=== PATIENT | female | born 1995 | race Caucasian/White ===

== ENCOUNTER 2018-11-30 19:34 | Inpatient (IN) | payer BC, OTHER, MEDICAID ==
[~2018-11-30] VITALS: Ht 152.4 cm; Wt 57.6 kg
[~2018-11-30 19:34] MED LIST: AMOXICILLIN 50500 MG PO; FLONASE 0.05%50 MCG NASAL; LIDOCAINE VISC100 ML PO; NORCO 5-325 TA1 EACH PO; PROAIR HFA8.5 GM INH; PROMETHAZINE/C118 ML PO
[2018-11-30 19:44] VITALS: BP 125/70
[2018-11-30 20:15] LABS: URINE BILIRUBIN NEGATIVE (Negative); URINE BLOOD NEGATIVE (Negative); URINE CLARITY CLEAR; URINE COLOR YELLOW; URINE GLUCOSE-RANDOM NEGATIVE (Negative); URINE KETONES NEGATIVE (Negative); URINE LEUKOCYTES 1+ (Negative); URINE NITRITE NEGATIVE (Negative); URINE PROTEIN NEGATIVE (Negative); URINE SPECIFIC GRAVITY >= 1.030 (1.005-1.030); URINE UROBILINOGEN 0.2 E.U./dl (0.2-1.0)
[2018-11-30 20:22] LABS: AMP/METHAMP POSITIVE (Negative); BARBITURATES Negative (Negative); BENZODIAZEPINES Negative (Negative); COCAINE Negative (Negative); METHADONE Negative (Negative); OPIATES Negative (Negative); PCP Negative (Negative); THC Negative (Negative)
[2018-11-30 20:26] LABS: ABSOLUTE BASOPHILS 0.1 thou/uL (0.0-0.2); ABSOLUTE EOSINOPHILS 0.2 thou/uL (0.0-0.7); ABSOLUTE LYMPHOCYTES 3.7 thou/uL (0.8-5.3); ABSOLUTE MONOCYTES 0.8 thou/uL (0.0-1.2); ABSOLUTE NEUTROPHILS 9.2 thou/uL (1.6-8.1); BASOPHILS 0.4 %; EOSINOPHILS 1.1 %; HEMATOCRIT 40.5 % (37.0-47.0); LYMPHOCYTES 26.6 %; MCH 31.2 pg (26.0-34.0); MCHC 34.6 g/dL (28.0-37.0); MCV 90.3 fL (80.0-100.0); MPV 8.8 fl. (7.2-11.1); NUCLEATED RBCS 0 /100WBC; PLATELET COUNT* 275 thou/uL (150-400); POLYS 65.9 %; RBC 4.48 mil/uL (4.20-5.00); RDW-CV 13.1 % (10.5-14.5)
[2018-11-30 20:27] LABS: SQUAMOUS >10 Many /LPF (0-3)
[2018-11-30 20:29] LABS: BACTERIA 1-9 Few /HPF (None Seen); CASTS None Seen /LPF (None Seen); CRYSTALS None Seen /LPF (None Seen); MUCUS None Seen strn/LPF (None Seen); URINE RBC None Seen /HPF (0-2); URINE WBC 0-5 Rare /HPF (0-5)
[2018-11-30 20:34] LABS: CALCIUM 8.7 mg/dL (8.5-10.1); CREATININE 0.7 mg/dL (0.6-1.3); POTASSIUM 3.4 mmol/L (3.5-5.1)
[2018-11-30 20:39] LABS: ALBUMIN 3.3 g/dL (3.4-5.0); TOTAL BILIRUBIN 0.3 mg/dL (<0.1-1.0); TOTAL PROTEIN 7.7 g/dL (6.4-8.2)
[2018-11-30 22:56] VITALS: BP 102/59
[2018-11-30 23:10] VITALS: BP 110/54
--- NOTE | 2018-12-01 00:38 | NUR ---
PT CAME DOWN FROM THE ER AT 2105 WITH HER MOM AND KIDS. VITALS STABLE RA EXCEPT FAST HR. PT STATED HER HR HAS BEEN ALWAYS HIGH. PT DENIED PAIN AT TIME. IVF RUNNING AT 125ML/HR. WILL CONTINUE TO MONITOR.
--- NOTE | 2018-12-01 05:27 | NUR ---
PT ALERT AND ORIENTED. VITALS STABLE RA. FLUID GIVEN ORDERED. PT DENIED PAIN. NO NAUSEA OR VOMITING THIS SHIFT. HOURLY ROUNDING COMPLETED. NPO AT MIDNIGHT. WILL CONTINUE TO MONITOR.
[2018-12-01 07:45] VITALS: BP 99/56
[2018-12-01 13:33] LABS: CALCIUM 8.4 mg/dL (8.5-10.1); CREATININE 0.6 mg/dL (0.6-1.3); MAGNESIUM 1.9 mg/dL (1.8-2.4); POTASSIUM 3.9 mmol/L (3.5-5.1)
--- NOTE | 2018-12-01 15:45 | NUR ---
STONE MASON SPOKE TO THE PATIENT TO DISCUSS DISCHARGE PLANNING NEEDS. PATIENT ALERT, ORIENTED AND INDEPENDENT WITH ADL'S. PATIENT ACTIVE AND WORKS. PATIENT DOES NOT ANTICIPATE ANY DISCHARGE PLANNING NEEDS. PATIENT IS CURRENTLY ON I.V. ABT'S, BUT IT IS UNCLEAR AT THIS TIME IF I.V. ABT'S WILL BE NEEDED AT D/C. CM WILL REMAIN AVIALABLE TO ASSIST AND FOLLOW NEEDED.
[2018-12-01 16:30] VITALS: BP 109/61
--- NOTE | 2018-12-01 17:54 | NUR ---
PATIENT HAS BEEN A/O X 4 THIS SHIFT. HAD BEDISDE I&D TO RIGHT KNEE TODAY, WYATT WRAP IN PLACE. PATIENT MEDICATED FOR PAIN WITH TORADOL WITH GOOD EFFECT. PATIENT UP WITH SBA. ID CONSULT NOTED AND UPDATED DR BASILIO ON PLAN OF CARE. PATIENT TOLERATING DIET. IVF AND ANTIBIOTICS INFUSING. HOURLY ROUNDING COMPLETED. CALL LIGHT WITHIN REACH. WILL CONTINUE WITH PLAN OF CARE.
[2018-12-01 21:30] VITALS: BP 108/69
[2018-12-02 04:11] LABS: ABSOLUTE BASOPHILS 0.1 thou/uL (0.0-0.2); ABSOLUTE EOSINOPHILS 0.3 thou/uL (0.0-0.7); ABSOLUTE LYMPHOCYTES 3.6 thou/uL (0.8-5.3); ABSOLUTE MONOCYTES 0.7 thou/uL (0.0-1.2); ABSOLUTE NEUTROPHILS 3.5 thou/uL (1.6-8.1); BASOPHILS 0.8 %; EOSINOPHILS 3.2 %; HEMATOCRIT 32.8 % (37.0-47.0); LYMPHOCYTES 44.3 %; MCH 31.2 pg (26.0-34.0); MCHC 34.1 g/dL (28.0-37.0); MCV 91.4 fL (80.0-100.0); MONOCYTES 8.1 %; MPV 9.6 fl. (7.2-11.1); NUCLEATED RBCS 0 /100WBC; POLYS 43.6 %; RBC 3.59 mil/uL (4.20-5.00); RDW-CV 13.2 % (10.5-14.5)
[2018-12-02 04:14] LABS: HEMOGLOBIN 11.2 gm/dL (12.0-15.0); PLATELET COUNT* 200 thou/uL (150-400)
[2018-12-02 04:30] LABS: CALCIUM 7.7 mg/dL (8.5-10.1); CREATININE 0.5 mg/dL (0.6-1.3); POTASSIUM 3.6 mmol/L (3.5-5.1)
--- NOTE | 2018-12-02 05:13 | NUR ---
PT ALERT AND ORIENTED. VITALS STABLE RA. IV ANTIBIOTICS GIVEN ORDERED. PT DENIED PAIN. DRESSING ON RT KNEE CLEAN AND DRY, HOURLY ROUNDING COMPLETED. WILL CONTINUE TO MONITOR.
[2018-12-02 08:00] VITALS: BP 103/55
[2018-12-02 16:30] VITALS: BP 114/72
--- NOTE | 2018-12-02 19:00 | NUR ---
PATIENT PLEASANT AND COOPERATIVE W/ ASSESS AND CARES. DRSG/WYATT TO RIGHT KNEE AREA WNL. PATIENT DENIES PAIN THRU SHIFT. PATIENT RESTING W/ EYES CLOSED, RESPS EVEN AND UNLABORED THRU MOST OF SHIFT, AWAKENS EASILY W/ NURSING CARES. INDEP IN RM. IV FLUIDS INFUSING W/O DIFF, CATH SITE NOTED WNL. CALL LIGHT IN REACH. ~TJRN
[2018-12-02 21:00] VITALS: BP 111/71
--- NOTE | 2018-12-03 04:52 | NUR ---
ASSUMED CARES AT 1920. ALERT AND ORIENTED X 4. PLEASANT. DENIED ANY PAIN, SOA, N/V. DRESSING TO RIGHT KNEE INTACT. RIGHT AC IV NS RUNNING AT 100 CC/HR. UP TO BSC. SLEPT MOST OF THE NIGHT. NO ISSUES. CALL LIGHT REACH.
--- NOTE | 2018-12-03 06:17 | CON ---
[address] [address] CONSULTATION Name: DEANNA CEJA Teo Room: [address] IN M.R.#: [id number] Admission: 11/30/18 Attend Phys: Teo Reich Discharge: Date of : 89 Report #: [id number] THIS REPORT FOR: //name// CC: Imer Srikanth Benito DATE OF SERVICE: 12/02/2018 INFECTIOUS DISEASE CONSULTATION ATTENDING PHYSICIAN: Shabbir Benito MD REASON FOR CONSULTATION: Right knee infection. HISTORY OF PRESENT ILLNESS: A 23-year-old white woman admitted with painful lesion, right knee, draining spontaneously, I believe Gram stain revealed gram-positive cocci. She is on treatment with Rocephin and vancomycin. She tells me she has no idea how this started. Apparently, on the weekend, she engaged in some physical activity that obviously could have caused some micro trauma to the area. PAST MEDICAL HISTORY: The patient tells me she thinks she is a healthy person. I queried her about the amphetamine and methamphetamine and her urine screen and she tells me it is an unclear type explanation for this issue. DRUG ALLERGIES: None listed. MEDICATIONS: The patient is on treatment with Rocephin 1 gram IV daily, vancomycin 1 gram IV every 12 hours. She is also receiving normal saline IV, promethazine p.r.n., ondansetron p.r.n., bisacodyl daily, magnesium hydroxide p.r.n., zolpidem p.r.n., Benadryl p.r.n., acetaminophen p.r.n. She is on p.r.n. ketorolac and fentanyl. SOCIAL HISTORY: See H and P, old records. FAMILY HISTORY: See H and P, old records. REVIEW OF SYSTEMS: Pains, right knee. PHYSICAL EXAMINATION: GENERAL: A well-developed, nourished woman, not toxic looking. VITAL SIGNS: Temperature 98.4, pulse 75, respirations 16, BP 108/69, height 5 feet, weight 127 pounds. HEENMT: Within range. NECK: Supple. No thyromegaly. LUNGS: [place] [address] CONSULTATION Name: DEANNA CEJA Room: [address]#: [id number] Admission: 11/30/18 Attend Phys: Teo Reich Discharge: Date of : 89 Report #: [id number] HEART: S1, S2. No gallop or murmur. BREASTS: Deferred. ABDOMEN: Soft. No masses or megaly. EXTREMITIES: Reveal on the right knee area and area of skin breakdown, some drainage and surrounding erythema, serous bloody drainage on dressings, dressings to be replaced by nursing. No pretibial edema, clubbing, cyanosis. NEUROLOGIC: Grossly within normal limits. LABORATORY DATA: Potassium 3.4 and replaced 3.6, BUN 7, creatinine 0.5, albumin 3.3 g/dL. Urine screen positive for amphetamine and methamphetamine. WBC on admission 14,000, repeated 8000, hemoglobin 11.2 g/dL and platelets 200,000. White blood cell count revealed 43% segmented neutrophils, 44% lymphocytes. CRP 42.4. ESR 37. Urinalysis revealed squamous epithelial cells and few bacteria. MICROBIOLOGY DATA: Blood cultures no growth. The Gram stain of the right knee lesion revealed many gram-positive cocci, many wbc's. RADIOLOGY EVALUATION: CT scan lower extremity revealed pre-patellar and infrapatellar cellulitis. ASSESSMENT: 1. Right knee area cellulitis, abscess formation, likely due to Streptococcus versus Staphylococcus. 2. Substance abuse. SUGGESTIONS: Recommend continue local wound care. Replace dressings daily. Continue vancomycin and Rocephin, possibly may discontinue Rocephin shortly since vancomycin covers Streptococcus and Staphylococcus. Dr. Benito, thank you for requesting our suggestions in the care of your patient. <ELECTRONICALLY SIGNED> By: Alexandre Nunez MD 12/03/18 0617 [id number] Nunez MD /nt
[2018-12-03 08:50] VITALS: BP 109/71
[2018-12-03 16:30] VITALS: BP 118/76
--- NOTE | 2018-12-03 18:37 | NUR ---
PATIENT PLEASANT AND COOPERATIVE THIS SHIFT, CONVERSANT. RESTING W/ EYES CLOSED, RESPS EVEN AND UNLABORED THRU MOST OF SHIFT. UP TO SHOWER INDEP THIS AFTERNOON. ORDER TO REMOVE IV AFTER VANCO INFUSING THIS PM, IV TO BE REPLACED W/ NEXT VANCO DOSE, PATIENT INFORMED AND AGREEABLE W/ THIS PLAN. FAMILY MEMBERS IN TO SEE PATIENT THIS AFTERNOON. PATIENT STATES ESTRADA PAIN ABOVE LT EYE, SEE MAR FOR INTERVENTION, RM LIGHTS DIMMED, PATIENT STATES ESTRADA RELIEVED W/ THIS INTERVENTION. HRLY ROUNDS DONE. ~TJRN
[2018-12-03 21:40] VITALS: BP 113/67
--- NOTE | 2018-12-04 05:32 | NUR ---
PT ALERT AND ORIENTED. VSS ON RA. PT SLEPT WELL THIS SHIFT. DRESSING TO RT KNEE CHANGED BECAUSE IT WAS WET FROM PT TAKING A BATH. NEW DRESSING C/D/I. PT DENIES PAIN, NAUSEA THIS SHIFT. IV VANC GIVEN PER EMAR. CALL LIGHT WITHIN REACH. HOURLY ROUNDINGS MADE. POSSIBLE DC TODAY. WILL CONTINUE TO MONIOTR.
[2018-12-04 08:16] VITALS: BP 118/79
[2018-12-04] MEDS ORDERED: MINOCIN50 MG PO (11:07)
[2018-12-04 11:09] VITALS: BP 118/79
[2018-12-04 11:23] VITALS: BP 118/79
[2018-12-04 13:20] VITALS: BP 118/79
--- NOTE | 2018-12-04 16:43 | NUR ---
ASSUMED CARE AT 0730. ALERT ORIENTED PLEASANT AND COOPERATIVE. HX OF CELLULITIS RT. KNEE. DRESSING C/D/I. DENIES PAIN OR CONCERNS. UP AD ROBERTO CRALOS IN ROOM. DISCHARGED TODAY AT 1320. D/C INSTRUCTIONS WERE GIVEN AND VERBALIZED UNDERSTANDING. ALLOWED TIME FOR QUESTIONS.
== END 2018-12-04 13:20 | disposition home or self-care (01) | DRG 982 ==
LOC: M.ERS 19:34 → M.ORTHSURG 21:42 → M.TBA-ER 21:42 → M.ORTHSURG 23:08
PROVIDERS: Internal Medicine; Nurse Practitioner Family; ADMIT Internal Medicine
PROC: 0Q9 Lower Bones, Drainage (ICD-10-PCS; principal; 2018-12-01)
DX: L03.115 Cellulitis of right lower limb (principal); N39.0 Urinary tract infection, site not specified; L02.415 Cutaneous abscess of right lower limb; F15.10 Other stimulant abuse, uncomplicated

== ENCOUNTER 2020-04-14 12:58 | Emergency (ER) | payer OTHER ==
[~2020-04-14] VITALS: Ht 167.6 cm; Wt 81.7 kg
[~2020-04-14 12:58] MED LIST changes: +MINOCIN50 MG PO
[2020-04-14 13:52] LABS: INFLUENZA A ANTIGEN Negative (Negative); INFLUENZA B ANTIGEN Negative (Negative)
[2020-04-14] MEDS ORDERED: AUGMENTIN 875-1 EACH PO (13:59)
[2020-04-14 14:15] VITALS: BP 135/86
== END 2020-04-14 14:15 | disposition home or self-care (01) ==
LOC: M.ERS 12:58
PROVIDERS: Nurse Practitioner Family
DX: J32.9 Chronic sinusitis, unspecified (principal); Z20.828 Contact with and (suspected) exposure to other viral communicable diseases

== ENCOUNTER 2021-01-21 21:23 | Emergency (ER) | payer OTHER ==
[~2021-01-21] VITALS: Ht 152.4 cm; Wt 90.7 kg
[~2021-01-21 21:23] MED LIST changes: +AUGMENTIN 875-1 EACH PO
[2021-01-21 23:11] LABS: URINE BILIRUBIN NEGATIVE (Negative); URINE BLOOD NEGATIVE (Negative); URINE COLOR YELLOW; URINE GLUCOSE-RANDOM NEGATIVE (Negative); URINE KETONES NEGATIVE (Negative); URINE LEUKOCYTES-REFLEX TRACE (Negative); URINE NITRITE-REFLEX NEGATIVE (Negative); URINE PROTEIN NEGATIVE (Negative); URINE SPECIFIC GRAVITY >= 1.030 (1.005-1.030); URINE UROBILINOGEN 0.2 E.U./dl (0.2-1.0)
[2021-01-21 23:13] LABS: URINE CLARITY SL HAZY
[2021-01-21 23:40] LABS: BACTERIA-REFLEX >30 Many /HPF (None Seen); MUCUS 4-6 Moderate strn/LPF (None Seen); RENAL EPITHELIAL CELLS 0-3 Few /LPF (None Seen); SQUAMOUS 0-3 Few /LPF (0-3); TRANSITIONAL EPITHEL CELL 0-3 Few /LPF (None Seen); URINE RBC 3-10 Few /HPF (0-2); URINE WBC-REFLEX >25 Many /HPF (0-5); WBC CLUMPS Moderate (None Seen)
[2021-01-21 23:41] LABS: CASTS None Seen /LPF (None Seen); CRYSTALS None Seen /LPF (None Seen)
[2021-01-22] MEDS ORDERED: MEDROLDOSEPACK PO (00:02)
[2021-01-22] MEDS ORDERED: BACTRIM DS TAB1 EACH PO (00:02)
[2021-01-22 00:14] VITALS: BP 122/70
== END 2021-01-22 00:14 | disposition home or self-care (01) ==
LOC: M.ERS 21:23
PROVIDERS: Emergency Medicine
DX: N39.0 Urinary tract infection, site not specified (principal); Z20.822 Contact with and (suspected) exposure to COVID-19; J32.9 Chronic sinusitis, unspecified

== ENCOUNTER 2021-07-27 09:54 | Emergency (ER) | payer OTHER, MEDICAID ==
[~2021-07-27] VITALS: Ht 154.9 cm; Wt 86.2 kg
[~2021-07-27 09:54] MED LIST changes: +BACTRIM DS TAB1 EACH PO; +MEDROLDOSEPACK PO
[2021-07-27] MEDS ORDERED: HYDROCODON-ACE1 EAC7 PO (11:18)
[2021-07-27] MEDS ORDERED: CLEOCIN HCL150 MG PO (11:25)
[2021-07-27] MEDS ORDERED: DEXAMETHASONE 0.5 M1 OTIC (11:25)
[2021-07-27] MEDS ORDERED: CIPROFLOXIN HC2.5 M1 OTIC (11:25)
[2021-07-27 11:37] VITALS: BP 123/81
== END 2021-07-27 11:39 | disposition home or self-care (01) ==
LOC: M.ERS 09:54
DX: H60.11 Cellulitis of right external ear (principal); H60.92 Unspecified otitis externa, left ear

== ENCOUNTER 2021-08-19 09:41 | Emergency (ER) | payer OTHER, MEDICAID ==
[~2021-08-19] VITALS: Ht 152.4 cm; Wt 86.2 kg
[~2021-08-19 09:41] MED LIST changes: +CIPROFLOXIN HC2.5 M1 OTIC; +CLEOCIN HCL150 MG PO; +DEXAMETHASONE 0.5 M1 OTIC; +HYDROCODON-ACE1 EAC7 PO
[2021-08-19] MEDS ORDERED: ZPAK PO (10:16)
[2021-08-19 10:33] VITALS: BP 123/72
== END 2021-08-19 10:33 | disposition home or self-care (01) ==
LOC: M.ERS 09:41
DX: H66.92 Otitis media, unspecified, left ear (principal)